=== PATIENT | male | born 1945 | race Caucasian/White ===

== ENCOUNTER → 2022-02-09 | Outpatient (REF) | payer MEDICARE | LOC: M SFHCDERM 14:02 | PROVIDERS: ATTEND Dermatology | DX: D48.9 Neoplasm of uncertain behavior, unspecified (principal) ==

== ENCOUNTER → 2025-02-11 | Outpatient (REF) | payer MEDICARE | LOC: M SFHCDERM 16:33 | PROVIDERS: ATTEND Nurse Practitioner Family | DX: D48.9 Neoplasm of uncertain behavior, unspecified (principal) ==